=== PATIENT | female | born 1930 | race Hispanic/Latino ===

== ENCOUNTER 2016-08-10 15:21 | Inpatient (IN) | payer MEDICARE ==
[2016-08-10 16:30] LABS: Basophils % (Auto) 1.1 % (0.0-1.8); Eosinophils % (Auto) 0.4 % (0.0-4.3); Hematocrit 33.2 % (30.3-42.9); Hemoglobin 10.3 gm/dl (10.1-14.3); Mean Corpuscular HGB Conc 31 % (30-34); Mean Corpuscular Hemoglobin 28 pg (28-32); Mean Corpuscular Volume 91 fl (79-97); Platelet Count 182 K/mm3 (140-440); Red Blood Count 3.66 M/mm3 (3.65-5.03); Red Cell Distribution Width 18.8 % (13.2-15.2); White Blood Count 6.3 K/mm3 (4.5-11.0)
[2016-08-10] MEDS ORDERED: LOPRESSOR IV ONE (16:33)
[2016-08-10] MEDS ORDERED: ASPIRIN PO ONE (16:33)
--- NOTE | 2016-08-10 16:36 | Emergency Department Report ---
ED Palpitations HPI - General Chief Complaint: Chest Pain Stated Complaint: CHEST PAIN Time Seen by Provider: 08/10/16 16:27 Source: patient, family Mode of arrival: Stretcher Limitations: No Limitations - History of Present Illness MD Complaint: rapid heart beat, "heart racing", "skipped beats", palpitations, irregular heart beat, atrial fibrillation -: Sudden Context: occured during rest, change in medication Arrythmia History: atrial fibrillation Associated Symptoms: chest pain, shortness of breath, near-syncope. denies: nausea/vomiting, diaphoresis, cough, parasthesias, feeling of impending doom, muscle cramps - Related Data Home Medications Medication Instructions Recorded Confirmed Last Taken Digoxin [Lanoxin] 0.125 mg PO DAILY 11/03/13 08/10/16 11/03/13 Warfarin Sodium [Coumadin] 3 mg PO QDAY 04/11/16 08/10/16 Unknown Carvedilol [Coreg] 3.125 mg PO DAILY 08/10/16 08/10/16 Unknown Allergies Allergy/AdvReac Type Severity Reaction Status Date / Time No Known Allergies Allergy Verified 08/10/16 16:04 ED Review of Systems ROS: Stated complaint: CHEST PAIN Other details as noted in HPI Comment: Unobtainable due to pts medical conditions Constitutional: denies: chills, fever Eyes: denies: eye pain, eye discharge, vision change ENT: denies: ear pain, throat pain Respiratory: denies: cough, shortness of breath, wheezing Cardiovascular: denies: chest pain, palpitations Endocrine: no symptoms reported Gastrointestinal: denies: abdominal pain, nausea, diarrhea Genitourinary: denies: urgency, dysuria, discharge Musculoskeletal: denies: back pain, joint swelling, arthralgia Skin: denies: rash, lesions Neurological: denies: headache, weakness, paresthesias Psychiatric: denies: anxiety, depression Hematological/Lymphatic: denies: easy bleeding, easy bruising ED Past Medical Hx - Past Medical History Previous Medical History?: Yes Hx Hypertension: Yes Hx CVA: Yes Hx Congestive Heart Failure: Yes Hx Diabetes: No Hx GERD: Yes Hx Arthritis: Yes Hx Asthma: No Hx COPD: No Hx HIV: No Additional medical history: Atrial fibrillation. States previous rotator cuff injury with left arm weakness. 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 - Surgical History Past Surgical History?: Yes Additional Surgical History: left hip surgery - Social History Smoking Status: Never Smoker Substance Use Type: None - Medications Home Medications: Home Medications Medication Instructions Recorded Confirmed Last Taken Type Digoxin [Lanoxin] 0.125 mg PO DAILY 11/03/13 08/10/16 11/03/13 History Warfarin Sodium [Coumadin] 3 mg PO QDAY 04/11/16 08/10/16 Unknown History Carvedilol [Coreg] 3.125 mg PO DAILY 08/10/16 08/10/16 Unknown History ED Physical Exam - General Limitations: No Limitations General appearance: alert, in no apparent distress - Head Head exam: Present: atraumatic, normocephalic - Eye Eye exam: Present: normal appearance - ENT ENT exam: Present: mucous membranes moist - Neck Neck exam: Present: normal inspection - Respiratory Respiratory exam: Present: normal lung sounds bilaterally, rales (mild lower bases). Absent: respiratory distress, wheezes, chest wall tenderness, accessory muscle use - Cardiovascular Cardiovascular Exam: Present: regular rate, normal rhythm. Absent: systolic murmur, diastolic murmur, rubs, gallop - GI/Abdominal GI/Abdominal exam: Present: soft, normal bowel sounds - Extremities Exam Extremities exam: Present: normal inspection - Back Exam Back exam: Present: normal inspection - Neurological Exam Neurological exam: Present: alert, oriented X3 - Psychiatric Psychiatric exam: Present: normal affect, normal mood - Skin Skin exam: Present: warm, dry, intact, normal color. Absent: rash ED Course Vital Signs 08/10/16 08/10/16 08/10/16 15:57 16:07 17:21 Temperature 98.2 F 98.2 F Pulse Rate 101 H 113 H 101 H Respiratory 16 16 Rate Blood Pressure 121/83 Blood Pressure 117/18 [Right] O2 Sat by Pulse 100 100 Oximetry ED Medical Decision Making - Lab Data Result diagrams: 08/10/16 16:10 08/10/16 16:10 - EKG Data Rate: tachycardia - EKG Data Interpretation: subendocardial ischemia, other (afib) - Radiology Data Radiology results: image reviewed - Medical Decision Making Will admit for chf and afib , metoprolol given here, labs and cxr consistent with mild pulm edema, she has been out of her dig for 3 weeks, She is speaking full sentence and eating in the ER, Spoke to cardiology and agree with plan for admission Critical care attestation.: If time is entered above; I have spent that time in minutes in the direct care of this critically ill patient, excluding procedure time. ED Disposition Clinical Impression: Atrial fibrillation, Pulmonary edema Disposition: OP ADMITTED IP TO THIS HOSP Is pt being admited?: Yes Does the pt Need Aspirin: No Condition: Good Instructions: Pulmonary Edema (ED) Referrals: PRIMARY CARE, [Primary Care Provider] - 3-5 Days Time of Disposition: 17:47
[2016-08-10 16:42] LABS: INR 1.78 (0.87-1.13); Partial Thromboplastin Time 35.2 Sec. (24.2-36.6)
[2016-08-10 16:53] LABS: Anion Gap 18 mmol/L; BUN/Creatinine Ratio 17.14; Blood Urea Nitrogen 12 mg/dL (7-17); Carbon Dioxide 22 mmol/L (22-30); Chloride 106.1 mmol/L (98-107); Glucose 109 mg/dL (65-100); Potassium 4.2 mmol/L (3.6-5.0); Sodium 142 mmol/L (137-145)
--- NOTE | 2016-08-10 18:04 | Admit Criteria Form ---
Admission Criteria Documentation: ATRIAL FIBRILLATION Clinical Indications for Admission to Inpatient Care (Place 'X' for any and all applicable criteria): Admission indicated for ANY ONE of the following(1)(2)(3)(4)(5) : [ ]I. Myocardial ischemia [X ]II. Dyspnea or hypoxemia [ ]III. Hemodynamic instability [ ]IV. Heart failure (e.g., pulmonary edema) (7) [ ]V. New-onset (less than 48 hours) atrial fibrillation with high risk for causing complications secondary to comorbidities (eg, symptomatic heart failure ) [ ]. Altered mental status [ ]VII. Syncope [ ]VIII. Patient has implantable cardioverter defibrillator that has fired more than once within past 24hr or needs immediate adjustment of settings that cannot be done other than in inpatient setting. (8) [ ]IX. Suspected accessory pathway (e.g., Ymcpo-[id number]-Htdco syndrome) on ECG [ ]X. Recent systemic thromboembolism (eg, stroke) [ ]XI. Medication toxicity (e.g., digitalis) causing arrhythmia(9) [ ]XII. Underlying medical condition that necessitates inpatient care (e.g., thyrotoxicosis, pneumonia) (10) [ ]XIII. Continuous ECG monitoring is required for condition causing arrhythmia (e.g., severe hyperkalemia, hypokalemia, acid-base disturbance).(11)(12)(13) [ ]XIV. Initiation of antiarrhythmic drug therapy is needed in patient at high risk of adverse effects as indicated by ANY ONE of the following: [ ]a) Significant structural heart disease (e.g., reduced ejection fraction, congenital heart disease, valvular heart disease) [ ]b) Prolonged QT interval [ ]c) Underlying sinus node or atrioventricular conduction disturbances [ ]d) Need for treatment with antiarrhythmic drugs that have significant proarrhythmic potential (e.g., dofetilide, sotalol, procainamide) [ ]e) Patient whose sinus rhythm has never been observed on ECG [ ]XV. Intolerable symptoms despite optimal outpatient treatment [ ]XVI. Elective or urgent cardioversion that cannot be performed on outpatient basis or during observation care. [A] (Use also Atrial Fibrillation: Observation Care ) as appropriate.(14) [ ]XVII.Contraindications and/or Inappropriate clinical situations for Observational Care in patients with Atrial Fibrillation, when ANY ONE of the following is required: [ ]a) Patient with High risk of cardiac embolism (e.g, patients with previous cardiac embolism, LVEF < 40%, age >75 and patients with prosthetic valve) 18 [ ]b) Patient with Moderate risk including DM patient, CAD and patient aged 65-75 18 [ ]c) Patient with any change in cardiac biomarker especially troponin should be managed as high risk in an inpatient setting 19 [ ]d) Physician judgement irrespective of ECG and other diagnostic findings 20 [X ]XVIII.General contraindications and/or Inappropriate clinical situations for Observational Care in patients with Atrial Fibrillation, when ANY ONE of the following is required: [ X]a) Prediction of prolongation of LOS based on ANY ONE of the following may be considered as a contraindication for observational care 2, 3, 4, 5, 6, 7, 8, 9, 10, 11 [X ]i) Age > 65 yrs. [ ]ii) Patient arriving by ambulance [ ]iii) Patient with high acuity [ ]iv) Patient requiring vital sign monitoring [ ]v) Patient on IV medication [ ]b) Systolic blood pressures 180mmHg 3,12 [ ]c) Patient with altered mental status including delirium and other alteration of consciousness3 [ ]d) Patient whose discharge disposition will be to a prison home or rehabilitation home should not be managed in Emergency Department Observation Unit. CMS rule requires 3 days hospital stay before such placement.3,13 [ ]e) Patient with failure to thrive due to broad array of etiologies 3,16,17 [ ]f) Inability to ambulate 3,14 Extended stay beyond goal length of stay may be needed for (1)(25)(26): [ ]a) Unstable comorbidities [ ]b) Persistently uncontrolled atrial fibrillation or other arrhythmias [ ]c) Acute thromboembolic event (e.g., stroke, limb ischemia) [ ]d) Need for inpatient attainment of full anticoagulation The original [employer] content created by [employer] has been revised. The portions of the content which have been revised are identified through the use of italic text or in bold, and [employer] [facility] [facility] has neither reviewed nor approved the modified material. All other unmodified content is copyright [employer]. Please see references footnoted in the original [employer] edition 2016 Admission Criteria Met: Yes
--- NOTE | 2016-08-10 18:59 | History and Physical Report ---
History of Present Illness Chief complaint: My heart is beating real fast History of present illness: 86 YO Female with HTN, CVA, CHF, GERD, OA, Atrial Fib with RVR presents to ED for evaluation. Pt states that she experienced and acute onset "heart racing" , "skipped beats". Pt states that symptoms began while she was resting. Pt denies fever, chills, CP, NVD, shortness of breath, syncope, leg swelling, calf pain, prolonged immobility/travel, individual/family history of DVT/PE, productive cough, or recent ill contacts. Pt had recent change in her cardiac medication. Past History Past Medical History: atrial fib, GERD, heart failure, hypertension, stroke Past Surgical History: total hip replacement Social history: . denies: smoking, alcohol abuse, prescription drug abuse Family history: hypertension Medications and Allergies Allergies Allergy/AdvReac Type Severity Reaction Status Date / Time No Known Allergies Allergy Verified 08/10/16 16:04 Home Medications Medication Instructions Recorded Confirmed Last Taken Type Digoxin [Lanoxin] 0.125 mg PO DAILY 11/03/13 08/10/16 11/03/13 History Warfarin Sodium [Coumadin] 3 mg PO QDAY 04/11/16 08/10/16 Unknown History Carvedilol [Coreg] 3.125 mg PO DAILY 08/10/16 08/10/16 Unknown History Review of Systems All systems: negative Cardiovascular: palpitations, rapid/irregular heart beat Exam - Constitutional Vitals: Temp Pulse Resp BP Pulse Ox 98.2 F 98 H 16 134/83 97 08/10/16 16:07 08/10/16 18:00 08/10/16 18:00 08/10/16 18:00 08/10/16 18:00 General appearance: Present: mild distress - EENT Eyes: Present: PERRL ENT: hearing intact, clear oral mucosa - Neck Neck: Present: supple, normal ROM - Respiratory Respiratory effort: normal Respiratory: bilateral: CTA - Cardiovascular Rhythm: irregularly irregular Heart Sounds: Present: S1 & S2. Absent: rub, click - Extremities Extremities: pulses symmetrical, No edema Peripheral Pulses: within normal limits - Abdominal General gastrointestinal: Present: soft, non-tender, non-distended, normal bowel sounds Female genitourinary: Present: normal - Integumentary Integumentary: Present: clear, warm, dry - Musculoskeletal Musculoskeletal: gait normal, strength equal bilaterally - Psychiatric Psychiatric: appropriate mood/affect, intact judgment & insight - Neurologic Neurologic: CNII-XII intact, moves all extremities Results - Labs CBC & Chem 7: 08/10/16 16:10 08/10/16 16:10 Labs: Abnormal lab results 08/10/16 08/10/16 08/10/16 Range/Units 16:10 16:10 16:10 RDW 18.8 H (13.2-15.2) % Lymph % (Auto) 11.8 L (13.4-35.0) % [place] % (Auto) 8.1 H (0.0-7.3) % Lymph # 0.7 L (1.2-5.4) K/mm3 Seg Neutrophils % 78.6 H (40.0-70.0) % PT 20.7 H (12.2-14.9) Sec. INR 1.78 H (0.87-1.13) Glucose 109 H (65-100) mg/dL Calcium 8.0 L (8.4-10.2) mg/dL NT-Pro-B Natriuret Pep (0-900) pg/mL 08/10/16 Range/Units 16:10 RDW (13.2-15.2) % Lymph % (Auto) (13.4-35.0) % Mower % (Auto) (0.0-7.3) % Lymph # (1.2-5.4) K/mm3 Seg Neutrophils % (40.0-70.0) % PT (12.2-14.9) Sec. INR (0.87-1.13) Glucose (65-100) mg/dL Calcium (8.4-10.2) mg/dL NT-Pro-B Natriuret Pep 5697 H (0-900) pg/mL Assessment and Plan - Patient Problems (1) Atrial fibrillation Current Visit: Yes Status: Acute Qualifiers: Atrial fibrillation type: A Plan to address problem: Cardiology team consulted, continue digoxin, Digoxin level, telemetry monitoring , resume anticoagulation, discuss risks and benefits of anticoagulation. (2) Accelerated hypertension Current Visit: Yes Status: Acute Plan to address problem: Monitor bp q shift, continue current therapy, (3) CHF (congestive heart failure) Current Visit: Yes Status: Chronic Qualifiers: Congestive heart failure type: systolic Congestive heart failure chronicity : C Plan to address problem: CHF protocol: fluid restriction, strict i/o, daily weight, resume home medication, supportive care. cardiology team consulted (4) Pulmonary edema Current Visit: Yes Status: Acute Qualifiers: Chronicity: C Plan to address problem: Fluid restriction, diuresis, treat chf, (5) DVT prophylaxis Current Visit: Yes Status: Acute
[2016-08-10] MEDS ORDERED: DULCOLAX PR PRN (19:33)
[2016-08-10] MEDS ORDERED: MILK OF MAGNESIA PO PRN (19:33)
[2016-08-10] MEDS ORDERED: TYLENOL PO PRN (19:33)
[2016-08-10] MEDS ORDERED: ZOFRAN IV PRN (19:33)
[2016-08-10] MEDS ORDERED: SODIUM CHLORIDE FLUSH SYRINGE 10 ML IV PRN (19:35)
[2016-08-10 21:19] LABS: Creatine Kinase 19 units/L (30-135); Creatine Kinase MB < 1.0 ng/mL (0.0-4.0)
--- NOTE | 2016-08-11 09:59 | XRay Report ---
AP CHEST : 08/10/16 15:21:00 CLINICAL: Chest pain. COMPARISON:04/11/16 FINDINGS: The heart is large. Central vascular congestion and bibasal lung opacities, greater on the right than the left. The pulmonary vessels are indistinct on the right side and there is more diffuse opacification of the right hemithorax and blunting of right costophrenic angle.The heart is large. The left upper lobe is clear. The bones and soft tissues are unremarkable. IMPRESSION: Suspect right pneumonia with pleural effusion.
[2016-08-11] MEDS ORDERED: COREG PO SCH (10:00)
[2016-08-11] MEDS ORDERED: NON-FORMULARY (Warfarin Sodium [Coumadin] 3 MG) PO SCH (10:00)
--- NOTE | 2016-08-11 13:14 | Progress Note ---
Assessment and Plan Assessment and plan: 86 YO Female with HTN, CVA, CHF, GERD, OA, Atrial Fib with RVR presents to ED for evaluation. Pt states that she experienced and acute onset "heart racing" , "skipped beats". Her daughter states that she was out of digoxin for about 2 weeks, as there was a problem with the MAIL order prescriptions. 1. Atrial fibrillation with RVR Has been restarted on her home medications which include digoxin and beta yousuf, on anticoagulation, INR subtherapeutic she has been started on Coumadin and pharmacy consult for Coumadin management 2. Accelerated hypertension Resume home meds, optimize medications 3. CHF Patient is currently euvolemic and asymptomatic, continue home medications low- sodium diet 4. Dementia Supportive care History Interval history: Palpitations are improved, denies chest pain, denies shortness of breath Hospitalist Physical - Physical exam Narrative exam: General: Patient appears well in no distress HEENT: MMM, EOMI cardiac: S1-S2 heard lungs: clear to auscultation, abdomen: soft, nontender, nondistended bowel sounds positive extremities: no edema clubbing or cyanosis Skin: no rash or lesion Neuro: no focal deficit Psych: Pleasantly demented, oriented to person only - Constitutional Vitals: Temp Pulse Resp BP Pulse Ox 98.3 F 111 H 16 166/97 99 08/11/16 09:45 08/11/16 10:00 08/11/16 09:45 08/11/16 09:45 08/11/16 09:45 General appearance: Present: mild distress Results - Labs CBC & Chem 7: 08/10/16 16:10 08/10/16 16:10 Labs: Laboratory Last Values WBC 6.3 K/mm3 (4.5-11.0) 08/10/16 16:10 RBC 3.66 M/mm3 (3.65-5.03) 08/10/16 16:10 Hgb 10.3 gm/dl (10.1-14.3) 08/10/16 16:10 Hct 33.2 % (30.3-42.9) 08/10/16 16:10 MCV 91 fl (79-97) 08/10/16 16:10 MCH 28 pg (28-32) 08/10/16 16:10 MCHC 31 % (30-34) 08/10/16 16:10 RDW 18.8 % (13.2-15.2) H 08/10/16 16:10 Plt Count 182 K/mm3 (140-440) 08/10/16 16:10 Lymph % (Auto) 11.8 % (13.4-35.0) L 08/10/16 16:10 [place] % (Auto) 8.1 % (0.0-7.3) H 08/10/16 16:10 Eos % (Auto) 0.4 % (0.0-4.3) 08/10/16 16:10 Baso % (Auto) 1.1 % (0.0-1.8) 08/10/16 16:10 Lymph # 0.7 K/mm3 (1.2-5.4) L 08/10/16 16:10 [place] # 0.5 K/mm3 (0.0-0.8) 08/10/16 16:10 Eos # 0.0 K/mm3 (0.0-0.4) 08/10/16 16:10 Baso # 0.1 K/mm3 (0.0-0.1) 08/10/16 16:10 Seg Neutrophils % 78.6 % (40.0-70.0) H 08/10/16 16:10 Seg Neutrophils # 4.9 K/mm3 (1.8-7.7) 08/10/16 16:10 PT 20.7 Sec. (12.2-14.9) H 08/10/16 16:10 INR 1.78 (0.87-1.13) H 08/10/16 16:10 APTT 35.2 Sec. (24.2-36.6) 08/10/16 16:10 Sodium 142 mmol/L (137-145) 08/10/16 16:10 Potassium 4.2 mmol/L (3.6-5.0) 08/10/16 16:10 Chloride 106.1 mmol/L (98-107) 08/10/16 16:10 Carbon Dioxide 22 mmol/L (22-30) 08/10/16 16:10 Anion Gap 18 mmol/L 08/10/16 16:10 BUN 12 mg/dL (7-17) 08/10/16 16:10 Creatinine 0.7 mg/dL (0.7-1.2) 08/10/16 16:10 Estimated GFR > 60 ml/min 08/10/16 16:10 BUN/Creatinine Ratio 17.14 % 08/10/16 16:10 Glucose 109 mg/dL (65-100) H 08/10/16 16:10 Calcium 8.0 mg/dL (8.4-10.2) L 08/10/16 16:10 Total Creatine Kinase 19 units/L (30-135) L 08/10/16 20:44 CK-MB (CK-2) < 1.0 ng/mL (0.0-4.0) 08/10/16 20:44 CK-MB (CK-2) Rel Index 5.2 (0-4) H 08/10/16 20:44 Troponin T < 0.010 ng/mL (0.00-0.029) 08/10/16 20:44 NT-Pro-B Natriuret Pep 5697 pg/mL (0-900) H 08/10/16 16:10 Digoxin 0.2 ng/mL (0.9-2.0) L 08/10/16 16:10
[2016-08-11] MEDS: LANOXIN PO SCH (16:33)
[2016-08-11] MEDS: COUMADIN PO SCH (16:33)
--- NOTE | 2016-08-11 18:42 | Consultation ---
History of Present Illness Consult date: 08/11/16 Consult reason: atrial fibrillation History of present illness: Patient all of sudden felt her heart was racing,no associated chest pain or SOB. Past History Past Medical History: atrial fib, GERD, heart failure, hypertension, stroke Past Surgical History: total hip replacement Social history: . denies: smoking, alcohol abuse, prescription drug abuse Family history: hypertension Medications and Allergies Allergies Allergy/AdvReac Type Severity Reaction Status Date / Time No Known Allergies Allergy Verified 08/10/16 16:04 Home Medications Medication Instructions Recorded Confirmed Last Taken Type Digoxin [Lanoxin] 0.125 mg PO DAILY 11/03/13 08/10/16 11/03/13 History Warfarin Sodium [Coumadin] 3 mg PO QDAY 04/11/16 08/10/16 Unknown History Carvedilol [Coreg] 3.125 mg PO DAILY 08/10/16 08/10/16 Unknown History Active Meds: Active Medications Acetaminophen (Tylenol) 650 mg PO Q4H PRN PRN Reason: Pain MILD(1-3)/Fever >100.5/GERMAIN Bisacodyl (Dulcolax) 10 mg NE QDAY PRN PRN Reason: Constipation unrelieved by MOM Digoxin (Lanoxin) 0.125 mg PO DAILY@1700 [facility] Last Admin: 08/11/16 16:33 Dose: 0.125 mg Magnesium Hydroxide (Milk Of Magnesia) 30 ml PO Q4H PRN PRN Reason: Constipation Metoprolol Tartrate (Lopressor) 25 mg PO BID [facility] Stop: 08/21/16 21:59 Ondansetron HCl (Zofran) 4 mg IV Q8H PRN PRN Reason: N/V unrelieved by Reglan Sodium Chloride (Sodium Chloride Flush Syringe 10 Ml) 10 ml IV PRN PRN PRN Reason: LINE FLUSH Warfarin Sodium (Coumadin) 3 mg PO DAILY@1700 [facility] Last Admin: 08/11/16 16:33 Dose: 3 mg Review of Systems Constitutional: no weight loss Ears, nose, mouth and throat: no nasal discharge Breasts: deferred Cardiovascular: palpitations, no chest pain, no syncope Respiratory: no cough Genitourinary Female: no dysuria Rectal: no bleeding Musculoskeletal: no neck pain Neurological: no head injury Psychiatric: no memory loss Hematologic/Lymphatic: no easy bleeding Allergic/Immunologic: no urticaria Physical Examination Vital Signs Temp Pulse Resp BP Pulse Ox 98.2 F 101 H 16 121/83 100 08/10/16 15:57 08/10/16 15:57 08/10/16 15:57 08/10/16 15:57 08/10/16 15:57 HEENT: Positive: PERRL Neck: Positive: neck supple, trachea midline Cardiac: Positive: irregularly irregular Lungs: Positive: Decreased Breath Sounds Abdomen: Positive: Unremarkable Female genitourinary: deferred Extremities: Absent: edema Results 08/10/16 16:10 08/10/16 16:10 Cardiac Enzymes 08/10/16 Range/Units 20:44 CK-MB (CK-2) < 1.0 (0.0-4.0) ng/mL EKG interpretations - Telemetry EKG Rhythm: Atrial Fibrillation Assessment and Plan - Patient Problems (1) Atrial fibrillation Current Visit: Yes Status: Acute Qualifiers: Atrial fibrillation type: A Plan to address problem: Patient known to me for long time,with atrial fibrillation,on dogoxin,carvedolo and Warfarin,did not take her digoxin for few weeks(mail order did not come), also takes Carvedilol only once a day.usually her B.P on low sode and could not give higher doses of B bloker.presently stable,changed Carvedilol to Metoprolol and see how leisa does. (2) Accelerated hypertension Current Visit: Yes Status: Acute (3) Anemia Onset Date: 01/21/13 Current Visit: No Status: Chronic Qualifiers: Anemia type: A Iron deficiency anemia type: I Vitamin B12 deficiency anemia type: V Folate deficiency anemia type: F Bone marrow failure anemia type: B Hemolytic anemia type: H Other causes of anemia: O
[2016-08-11] MEDS ORDERED: LASIX IV ONE (19:18)
[2016-08-11] MEDS: LOPRESSOR PO SCH (21:10)
[2016-08-11 23:50] LABS: Creatine Kinase MB 1.1 ng/mL (0.0-4.0)
[2016-08-11 23:52] LABS: Creatine Kinase 20 units/L (30-135)
[2016-08-12 07:53] LABS: INR 1.47 (0.87-1.13)
[2016-08-12] MEDS: LOPRESSOR PO SCH ×2 (08:59→22:00)
[2016-08-12] MEDS ORDERED: LASIX IV ONE (15:43)
--- NOTE | 2016-08-12 15:47 | Progress Note ---
Assessment and Plan - Patient Problems (1) Atrial fibrillation Current Visit: Yes Status: Acute Qualifiers: Atrial fibrillation type: A Plan to address problem: Patient known to me for long time,with atrial fibrillation,on dogoxin,carvedolo and Warfarin,did not take her digoxin for few weeks(mail order did not come), also takes Carvedilol only once a day.usually her B.P on low sode and could not give higher doses of B bloker.presently stable,changed Carvedilol to Metoprolol and see how leisa does. 08/12/2016>Atrial fib rate is well controlled.Continue present rx. (2) Accelerated hypertension Current Visit: Yes Status: Acute (3) Anemia Onset Date: 01/21/13 Current Visit: No Status: Chronic Qualifiers: Anemia type: A Iron deficiency anemia type: I Vitamin B12 deficiency anemia type: V Folate deficiency anemia type: F Bone marrow failure anemia type: B Hemolytic anemia type: H Other causes of anemia: O (4) CHF (congestive heart failure) Current Visit: Yes Status: Acute Qualifiers: Congestive heart failure type: systolic Congestive heart failure chronicity : C Plan to address problem: responding well to diuretics,will check echo. Subjective Date of service: 08/12/16 Interval history: Patient diuresed well with iv Lasix,feels better. Objective Vital Signs Temp Pulse Pulse Pulse Pulse Resp BP 08/12/16 13:32 75 08/12/16 08:59 71 161/82 08/12/16 08:00 97.6 F 71 08/12/16 06:00 97.9 F 69 20 08/12/16 01:27 98.7 F 85 20 08/11/16 21:10 99 H 148/86 08/11/16 20:16 97.6 F 78 19 08/11/16 17:35 97.2 F L 112 H 16 BP Pulse Ox 08/12/16 13:32 156/61 08/12/16 08:59 08/12/16 08:00 161/82 08/12/16 06:00 144/92 98 08/12/16 01:27 179/85 100 08/11/16 21:10 08/11/16 20:16 148/86 96 08/11/16 17:35 136/78 97 - Physical Examination HEENT: Positive: PERRL Neck: Positive: neck supple, trachea midline Cardiac: Positive: irregularly irregular Lungs: Positive: Normal Breath Sounds, Decreased Breath Sounds Abdomen: Positive: Unremarkable Extremities: Present: edema, +1 Edema - Labs and Meds Cardiac Enzymes 08/11/16 Range/Units 23:09 CK-MB (CK-2) 1.1 (0.0-4.0) ng/mL Coagulation 08/12/16 Range/Units 07:02 PT 17.8 H (12.2-14.9) Sec. INR 1.47 H (0.87-1.13)
[2016-08-12] MEDS: LANOXIN PO SCH (18:45)
[2016-08-12] MEDS: ZESTRIL PO SCH (18:46)
[2016-08-12] MEDS: COUMADIN PO SCH (18:46)
[2016-08-12] MEDS: LASIX IV ONE ×2 (19:00→20:36)
[2016-08-13 06:04] LABS: INR 1.48 (0.87-1.13)
[2016-08-13] MEDS: ZESTRIL PO SCH (11:14)
[2016-08-13] MEDS: LOPRESSOR PO SCH (11:16)
--- NOTE | 2016-08-13 11:34 | Progress Note ---
Assessment and Plan - Patient Problems (1) Atrial fibrillation Current Visit: Yes Status: Acute Qualifiers: Atrial fibrillation type: A Plan to address problem: Atrial fib rate is well controlled.Continue present rx. (2) Accelerated hypertension Current Visit: Yes Status: Acute (3) Anemia Onset Date: 01/21/13 Current Visit: No Status: Chronic Qualifiers: Anemia type: A Iron deficiency anemia type: I Vitamin B12 deficiency anemia type: V Folate deficiency anemia type: F Bone marrow failure anemia type: B Hemolytic anemia type: H Other causes of anemia: O (4) CHF (congestive heart failure) Current Visit: Yes Status: Acute Qualifiers: Congestive heart failure type: systolic Congestive heart failure chronicity : C Plan to address problem: responding well to diuretics,will check echo. Currently stable cardiac status. Await echo. Pending echo reveals NAF, pt may discharge home from cardiology standpoint. Recommend follow up in our office with Dr. Kemp within 1-2 weeks of hospital discharge. Pt to start having INR checks at home per home health to encourage compliance. The patient has been seen in conjunction with Dr. Nogueira who agrees with the assessment and plan of care. Subjective Date of service: 08/13/16 Principal diagnosis: AFib with RVR Interval history: Pt resting comfortably in bed, no complaints. In AFib with CVR on tele. Daughter at bedside states that pt is becoming increasingly confused as this hospitalization continues and is requesting that pt be discharged home JUANY. Objective Last Vital Signs Temp 97.9 F 08/13/16 07:09 Pulse 72 08/13/16 11:16 Resp 20 08/13/16 07:09 BP 124/61 08/13/16 07:09 Pulse Ox 97 08/13/16 07:09 - Physical Examination HEENT: Positive: PERRL Neck: Positive: neck supple, trachea midline Cardiac: Positive: irregularly irregular, S1/S2 Lungs: Positive: Normal Exam, clear to auscultation, Normal Breath Sounds Neuro: Positive: Grossly Intact, Cranial Nerve 2-12 Intact, Other (confused ) Abdomen: Positive: Unremarkable, Soft, Active Bowel Sounds. Negative: Tender Skin: Positive: Clear. Negative: Rash, Wound Musculoskeletal: No Fluid Collection, No Pain, Normal Range of Motion Extremities: Present: upper extr. pulses, lower extr. pulses. Absent: edema - Labs and Meds Coagulation 08/13/16 Range/Units 04:51 PT 17.9 H (12.2-14.9) Sec. INR 1.48 H (0.87-1.13) - Imaging and Cardiology EKG: report reviewed, image reviewed Echo: pending - Telemetry EKG Rhythm: Atrial Fibrillation
[2016-08-13 13:08] VITALS: BP 128/68
--- NOTE | 2016-08-13 14:00 | Progress Note ---
Assessment and Plan Assessment and plan: 86 YO Female with HTN, CVA, CHF, GERD, OA, Atrial Fib with RVR presents to ED for evaluation. Pt states that she experienced and acute onset "heart racing" , "skipped beats". Her daughter states that she was out of digoxin for about 2 weeks, as there was a problem with the MAIL order prescriptions. 1. Atrial fibrillation with RVR Has been restarted on her home medications which include digoxin and beta yousuf, on anticoagulation, INR subtherapeutic she has been started on Coumadin and pharmacy consult for Coumadin management 2. Accelerated hypertension Resume home meds, optimize medications 3. CHF Patient is currently euvolemic and asymptomatic, continue home medications low- sodium diet 4. Dementia Supportive care History Interval history: Palpitations are improved, denies chest pain, denies shortness of breath Hospitalist Physical - Physical exam Narrative exam: General: Patient appears well in no distress HEENT: MMM, EOMI cardiac: S1-S2 heard lungs: clear to auscultation, abdomen: soft, nontender, nondistended bowel sounds positive extremities: no edema clubbing or cyanosis Skin: no rash or lesion Neuro: no focal deficit Psych: Pleasantly demented, oriented to person only - Constitutional Vitals: Temp Pulse Resp BP Pulse Ox 98.8 F 75 18 128/68 99 08/13/16 13:07 08/13/16 13:07 08/13/16 13:07 08/13/16 13:07 08/13/16 13:07 General appearance: Present: mild distress Results - Labs CBC & Chem 7: 08/10/16 16:10 08/10/16 16:10 Labs: Laboratory Last Values WBC 6.3 K/mm3 (4.5-11.0) 08/10/16 16:10 RBC 3.66 M/mm3 (3.65-5.03) 08/10/16 16:10 Hgb 10.3 gm/dl (10.1-14.3) 08/10/16 16:10 Hct 33.2 % (30.3-42.9) 08/10/16 16:10 MCV 91 fl (79-97) 08/10/16 16:10 MCH 28 pg (28-32) 08/10/16 16:10 MCHC 31 % (30-34) 08/10/16 16:10 RDW 18.8 % (13.2-15.2) H 08/10/16 16:10 Plt Count 182 K/mm3 (140-440) 08/10/16 16:10 Lymph % (Auto) 11.8 % (13.4-35.0) L 08/10/16 16:10 Barron % (Auto) 8.1 % (0.0-7.3) H 08/10/16 16:10 Eos % (Auto) 0.4 % (0.0-4.3) 08/10/16 16:10 Baso % (Auto) 1.1 % (0.0-1.8) 08/10/16 16:10 Lymph # 0.7 K/mm3 (1.2-5.4) L 08/10/16 16:10 [place] # 0.5 K/mm3 (0.0-0.8) 08/10/16 16:10 Eos # 0.0 K/mm3 (0.0-0.4) 08/10/16 16:10 Baso # 0.1 K/mm3 (0.0-0.1) 08/10/16 16:10 Seg Neutrophils % 78.6 % (40.0-70.0) H 08/10/16 16:10 Seg Neutrophils # 4.9 K/mm3 (1.8-7.7) 08/10/16 16:10 PT 17.9 Sec. (12.2-14.9) H 08/13/16 04:51 INR 1.48 (0.87-1.13) H 08/13/16 04:51 APTT 35.2 Sec. (24.2-36.6) 08/10/16 16:10 Sodium 142 mmol/L (137-145) 08/10/16 16:10 Potassium 4.2 mmol/L (3.6-5.0) 08/10/16 16:10 Chloride 106.1 mmol/L (98-107) 08/10/16 16:10 Carbon Dioxide 22 mmol/L (22-30) 08/10/16 16:10 Anion Gap 18 mmol/L 08/10/16 16:10 BUN 12 mg/dL (7-17) 08/10/16 16:10 Creatinine 0.7 mg/dL (0.7-1.2) 08/10/16 16:10 Estimated GFR > 60 ml/min 08/10/16 16:10 BUN/Creatinine Ratio 17.14 % 08/10/16 16:10 Glucose 109 mg/dL (65-100) H 08/10/16 16:10 Calcium 8.0 mg/dL (8.4-10.2) L 08/10/16 16:10 Total Creatine Kinase 20 units/L (30-135) L 08/11/16 23:09 CK-MB (CK-2) 1.1 ng/mL (0.0-4.0) 08/11/16 23:09 CK-MB (CK-2) Rel Index 5.5 (0-4) H 08/11/16 23:09 Troponin T < 0.010 ng/mL (0.00-0.029) 08/11/16 23:09 NT-Pro-B Natriuret Pep 5697 pg/mL (0-900) H 08/10/16 16:10 Digoxin 0.2 ng/mL (0.9-2.0) L 08/10/16 16:10
--- NOTE | 2016-08-13 14:01 | Discharge Summary ---
Providers - Providers Date of Admission: 08/10/16 19:33 Attending physician: MARGY ACE MD 08/10/16 Consult to Cardiac Rehabilitation [CONS] Routine Reason For Exam: Phase I 08/10/16 19:37 Consult to Physician [CONS] Routine Consulting Provider: [place] ANDREW Reason For Exam: CHF, a fib Place consult to:: cardiology Notified:: NIELS AT [facility] Phone number called:: [phone] Was contact made?: Yes If yes, spoke with:: NIELS AT [facility] Time called:: 22:30 08/11/16 15:37 Physical Therapy Evaluation and Treat [CONS] Routine Comment: Reason For Exam: debility Primary care physician: [employer]PAK DRIVER Hospitalization Condition: Good Hospital course: 86 YO Female with HTN, CVA, CHF, GERD, OA, Atrial Fib with RVR presents to ED for evaluation. Pt states that she experienced and acute onset "heart racing" , "skipped beats". Her daughter states that she was out of digoxin for about 2 weeks, as there was a problem with the MAIL order prescriptions. 1. Atrial fibrillation with RVR Has been restarted on her home medications which include digoxin and beta yousuf, after which her heart rate became better controlled, she was put back on Coumadin, INR is well followed. Patient is to follow with her Coumadin clinic within 48 hours of discharge. 2. Accelerated hypertension Resumed home meds, after which her blood pressure is under better control 3. CHF currently euvolemic and asymptomatic, continue home medications low-sodium diet 4. Dementia Supportive care Disposition: DC/TX HOME UNDER HOME HEALTH Time spent for discharge: 35 minutes Core Measure Documentation - Palliative Care Palliative Care/ Comfort Measures: Not Applicable - Core Measures Any of the following diagnoses?: heart failure Exam - Physical Exam Narrative exam: General: Patient appears well in no distress HEENT: MMM, EOMI cardiac: S1-S2 heard lungs: clear to auscultation, abdomen: soft, nontender, nondistended bowel sounds positive extremities: no edema clubbing or cyanosis Skin: no rash or lesion Neuro: no focal deficit Psych: Pleasantly demented, oriented to person only - Constitutional Vitals: Temp Pulse Resp BP Pulse Ox 98.8 F 75 18 128/68 99 08/13/16 13:07 08/13/16 13:07 08/13/16 13:07 08/13/16 13:07 08/13/16 13:07 Plan Additional Instructions: *INR Checks have been set up with Home health Services Follow up with: PRIMARY CARE, [Primary Care Provider] - 3-5 Days Forms: Warfarin Discharge Instruction Prescriptions: Digoxin [Lanoxin] 0.125 mg PO DAILY #30 tablet Lisinopril [Zestril TAB] 20 mg PO QDAY #30 tablet Metoprolol [Lopressor TAB] 25 mg PO BID #60 tablet
[2016-08-13] MEDS ORDERED: COUMADIN PO SCH (17:00)
== END 2016-08-13 17:16 | disposition home health service (06) | DRG 309 ==
LOC: ED 15:21 → 4A 19:33
PROVIDERS: ADMIT Internal Medicine; ATTEND Internal Medicine
DX: I48.91 Unspecified atrial fibrillation (principal); I50.22 Chronic systolic (congestive) heart failure; D64.9 Anemia, unspecified; I11.0 Hypertensive heart disease with heart failure; K21.9 Gastro-esophageal reflux disease without esophagitis; M19.90 Unspecified osteoarthritis, unspecified site; F03.90 Unspecified dementia, unspecified severity, without behavioral disturbance, psychotic disturbance, mood disturbance, and anxiety; Z96.641 Presence of right artificial hip joint; I69.322 Dysarthria following cerebral infarction; Z79.899 Other long term (current) drug therapy; Z82.49 Family history of ischemic heart disease and other diseases of the circulatory system
CPT/HCPCS: 36415; 71010; 80048; 80162; 82550; 82553; 83880; 84484; 85025; 85610; 85730; 93005; 93010; 93306; 96374; G8978-GP; G8979-GP; G8980-GP; J1940

== ENCOUNTER 2017-04-03 16:39 | Emergency (ER) | payer MEDICARE ==
[2017-04-03 18:10] VITALS: BP 127/72
[2017-04-03 18:24] LABS: Basophils % (Auto) 0.6 % (0.0-1.8); Eosinophils % (Auto) 0.7 % (0.0-4.3); Hemoglobin 11.6 gm/dl (10.1-14.3); Mean Corpuscular HGB Conc 32 % (30-34); Mean Corpuscular Hemoglobin 31 pg (28-32); Mean Corpuscular Volume 95 fl (79-97); Platelet Count 218 K/mm3 (140-440); Red Blood Count 3.79 M/mm3 (3.65-5.03); Red Cell Distribution Width 16.6 % (13.2-15.2); White Blood Count 8.4 K/mm3 (4.5-11.0)
--- NOTE | 2017-04-03 18:33 | Emergency Department Report ---
ED Altered Mental Status HPI - General Chief Complaint: Altered Mental Status Stated Complaint: HYPGLYCEMIA Time Seen by Provider: 04/03/17 18:17 Source: EMS Mode of arrival: Ambulatory Limitations: Physical Limitation - History of Present Illness Initial Comments: Patient is 86 years old female history of dementia, CHF, CVA and arthritis, followed by family for evaluation of altered mental status for 2 days. Family stated that she is more confused, she doesn't know where she is in her family is , she is talking to herself a lot and she is seeing things that are not there. Family also reported that she fell 2 weeks ago and she did not have a medical evaluation. Patient denied any headache. No weakness or numbness or tingling sensation. MD Complaint: altered mental status, confusion -: days(s) Severity: moderate - Related Data Home Medications Medication Instructions Recorded Confirmed Last Taken Warfarin Sodium [Coumadin] 3 mg PO QDAY 04/11/16 08/10/16 Unknown Previous Rx's Medication Instructions Recorded Last Taken Type Digoxin [Lanoxin] 0.125 mg PO DAILY #30 tablet 08/13/16 Unknown Rx Lisinopril [Zestril TAB] 20 mg PO QDAY #30 tablet 08/13/16 Unknown Rx Metoprolol [Lopressor TAB] 25 mg PO BID #60 tablet 08/13/16 Unknown Rx Allergies Allergy/AdvReac Type Severity Reaction Status Date / Time No Known Allergies Allergy Verified 08/10/16 16:04 ED Review of Systems ROS: Stated complaint: HYPGLYCEMIA Other details as noted in HPI Comment: All other systems reviewed and negative Eyes: denies: vision change ENT: denies: throat pain Respiratory: denies: cough, orthopnea, shortness of breath, SOB with exertion, SOB at rest Cardiovascular: denies: chest pain, palpitations Gastrointestinal: denies: abdominal pain, nausea, vomiting, diarrhea Genitourinary: urgency, dysuria, frequency Musculoskeletal: denies: back pain Neurological: confusion. denies: headache, weakness, numbness, paresthesias, abnormal gait ED Past Medical Hx - Past Medical History Previous Medical History?: Yes Hx Hypertension: Yes Hx CVA: Yes Hx Heart Attack/AMI: No Hx Congestive Heart Failure: Yes Hx Diabetes: No Hx Deep Vein Thrombosis: No Hx Pulmonary Embolism: No Hx GERD: Yes Hx Liver Disease: No Hx Renal Disease: No Hx of Cancer: No Hx Sickle Cell Disease: No Hx Arthritis: Yes Hx Headaches / Migraines: No Hx Seizures: No Hx Kidney Stones: No Hx Psychiatric Treatment: No Hx Asthma: No Hx COPD: No Hx Tuberculosis: No Hx Dementia: No Hx HIV: No Additional medical history: Atrial fibrillation. States previous rotator cuff injury with left arm weakness. 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 - Surgical History Past Surgical History?: Yes Hx Coronary Stent: No Hx Open Heart Surgery: No Hx Pacemaker: No Hx Internal Defibrillator: No Hx Cholecystectomy: No Hx Appendectomy: No Hx Breast Surgery: No Additional Surgical History: left hip surgery - Social History Smoking Status: Never Smoker Substance Use Type: None - Medications Home Medications: Home Medications Medication Instructions Recorded Confirmed Last Taken Type Warfarin Sodium [Coumadin] 3 mg PO QDAY 04/11/16 08/10/16 Unknown History Digoxin [Lanoxin] 0.125 mg PO DAILY #30 tablet 08/13/16 Unknown Rx Lisinopril [Zestril TAB] 20 mg PO QDAY #30 tablet 08/13/16 Unknown Rx Metoprolol [Lopressor TAB] 25 mg PO BID #60 tablet 08/13/16 Unknown Rx ED Physical Exam - General Limitations: Physical Limitation General appearance: alert, in no apparent distress - Head Head exam: Present: atraumatic, normocephalic, normal inspection - Eye Eye exam: Present: normal appearance, PERRL, EOMI Pupils: Present: normal accommodation - ENT ENT exam: Present: normal exam, mucous membranes moist, normal external ear exam - Neck Neck exam: Present: normal inspection, full ROM. Absent: tenderness, meningismus, lymphadenopathy, thyromegaly - Respiratory Respiratory exam: Present: normal lung sounds bilaterally. Absent: respiratory distress, wheezes, rales, rhonchi, stridor, chest wall tenderness, accessory muscle use, decreased breath sounds, prolonged expiratory - Cardiovascular Cardiovascular Exam: Present: regular rate, normal rhythm, normal heart sounds - GI/Abdominal GI/Abdominal exam: Present: soft, normal bowel sounds. Absent: distended, tenderness, guarding, rebound, rigid, organomegaly, mass, bruit, pulsatile mass , hernia - Extremities Exam Extremities exam: Present: normal inspection, normal capillary refill. Absent: tenderness - Back Exam Back exam: Present: normal inspection. Absent: CVA tenderness (R), CVA tenderness (L) - Neurological Exam Neurological exam: Present: alert, altered, CN II-XII intact - Skin Skin exam: Present: warm, intact, normal color ED Course Vital Signs 04/03/17 04/03/17 12 17:12 17:15 17:19 Temperature 98.1 F Pulse Rate 89 101 H 101 H Respiratory 11 L 19 18 Rate Blood Pressure 127/72 127/72 Blood Pressure 127/72 [Right] O2 Sat by Pulse 97 100 Oximetry - Reevaluation(s) Reevaluation #1: 04/03/17 21:27 Patient improved significantly after fluids. She is talking to her family. Family stated that she looks much better. - Lab Data Result diagrams: 04/03/17 17:56 04/03/17 17:56 Lab Results 04/03/17 04/03/17 04/03/17 Range/Units 17:56 17:56 17:56 WBC 8.4 (4.5-11.0) K/mm3 RBC 3.79 (3.65-5.03) M/mm3 Hgb 11.6 (10.1-14.3) gm/dl Hct 36.0 (30.3-42.9) % MCV 95 (79-97) fl MCH 31 (28-32) pg MCHC 32 (30-34) % RDW 16.6 H (13.2-15.2) % Plt Count 218 (140-440) K/mm3 Lymph % (Auto) 9.3 L (13.4-35.0) % Fisher % (Auto) 8.9 H (0.0-7.3) % Eos % (Auto) 0.7 (0.0-4.3) % Baso % (Auto) 0.6 (0.0-1.8) % Lymph # 0.8 L (1.2-5.4) K/mm3 Fisher # 0.8 (0.0-0.8) K/mm3 Eos # 0.1 (0.0-0.4) K/mm3 Baso # 0.0 (0.0-0.1) K/mm3 Seg Neutrophils % 80.5 H (40.0-70.0) % Seg Neutrophils # 6.8 (1.8-7.7) K/mm3 Sodium 141 (137-145) mmol/L Potassium 4.6 (3.6-5.0) mmol/L Chloride 105.5 (98-107) mmol/L Carbon Dioxide 19 L (22-30) mmol/L Anion Gap 21 mmol/L BUN 22 H (7-17) mg/dL Creatinine 0.7 (0.7-1.2) mg/dL Estimated GFR > 60 ml/min BUN/Creatinine Ratio 31 % Glucose 102 H (65-100) mg/dL Lactic Acid 1.40 (0.7-2.0) mmol/L Calcium 8.0 L (8.4-10.2) mg/dL Magnesium 2.20 (1.7-2.3) mg/dL Total Bilirubin 0.60 (0.1-1.2) mg/dL AST 17 (5-40) units/L ALT 13 (7-56) units/L Alkaline Phosphatase 142 H (35-129) units/L Total Protein 6.8 (6.3-8.2) g/dL Albumin 3.2 L (3.9-5) g/dL Albumin/Globulin Ratio 0.9 % TSH (0.270-4.200) mlU/mL Urine Color (Yellow) Urine Turbidity (Clear) Urine pH (5.0-7.0) Ur Specific [place] (1.003-1.030) Urine Protein (Negative) mg/dL Urine Glucose (UA) (Negative) mg/dL Urine Ketones (Negative) mg/dL Urine Blood (Negative) Urine Nitrite (Negative) Urine Bilirubin (Negative) Urine Urobilinogen (<2.0) mg/dL Ur Leukocyte Esterase (Negative) Urine WBC (Auto) (0.0-6.0) /HPF Urine RBC (Auto) (0.0-6.0) /HPF U Epithel Cells (Auto) (0-13.0) /HPF Urine Mucus /HPF Urine Yeast (Budding) /HPF Salicylates (2.8-20.0) mg/dL Urine Opiates Screen Urine Methadone Screen Acetaminophen (10.0-30.0) ug/mL Ur Barbiturates Screen Ur Phencyclidine Scrn Ur Amphetamines Screen U Benzodiazepines Scrn Urine Cocaine Screen U Marijuana (THC) Screen Drugs of Abuse Note Plasma/Serum Alcohol (0-0.07) gm% 12/06/17 12/06/17 12/06/17 Range/Units 17:56 17:56 17:56 WBC (4.5-11.0) K/mm3 RBC (3.65-5.03) M/mm3 Hgb (10.1-14.3) gm/dl Hct (30.3-42.9) % MCV (79-97) fl MCH (28-32) pg MCHC (30-34) % RDW (13.2-15.2) % Plt Count (140-440) K/mm3 Lymph % (Auto) (13.4-35.0) % Fisher % (Auto) (0.0-7.3) % Eos % (Auto) (0.0-4.3) % Baso % (Auto) (0.0-1.8) % Lymph # (1.2-5.4) K/mm3 Fisher # (0.0-0.8) K/mm3 Eos # (0.0-0.4) K/mm3 Baso # (0.0-0.1) K/mm3 Seg Neutrophils % (40.0-70.0) % Seg Neutrophils # (1.8-7.7) K/mm3 Sodium (137-145) mmol/L Potassium (3.6-5.0) mmol/L Chloride (98-107) mmol/L Carbon Dioxide (22-30) mmol/L Anion Gap mmol/L BUN (7-17) mg/dL Creatinine (0.7-1.2) mg/dL Estimated GFR ml/min BUN/Creatinine Ratio % Glucose (65-100) mg/dL Lactic Acid (0.7-2.0) mmol/L Calcium (8.4-10.2) mg/dL Magnesium (1.7-2.3) mg/dL Total Bilirubin (0.1-1.2) mg/dL AST (5-40) units/L ALT (7-56) units/L Alkaline Phosphatase (35-129) units/L Total Protein (6.3-8.2) g/dL Albumin (3.9-5) g/dL Albumin/Globulin Ratio % TSH 1.780 (0.270-4.200) mlU/mL Urine Color (Yellow) Urine Turbidity (Clear) Urine pH (5.0-7.0) Ur Specific [place] (1.003-1.030) Urine Protein (Negative) mg/dL Urine Glucose (UA) (Negative) mg/dL Urine Ketones (Negative) mg/dL Urine Blood (Negative) Urine Nitrite (Negative) Urine Bilirubin (Negative) Urine Urobilinogen (<2.0) mg/dL Ur Leukocyte Esterase (Negative) Urine WBC (Auto) (0.0-6.0) /HPF Urine RBC (Auto) (0.0-6.0) /HPF U Epithel Cells (Auto) (0-13.0) /HPF Urine Mucus /HPF Urine Yeast (Budding) /HPF Salicylates < 0.3 L (2.8-20.0) mg/dL Urine Opiates Screen Urine Methadone Screen Acetaminophen < 15.0 (10.0-30.0) ug/mL Ur Barbiturates Screen Ur Phencyclidine Scrn Ur Amphetamines Screen U Benzodiazepines Scrn Urine Cocaine Screen U Marijuana (THC) Screen Drugs of Abuse Note Plasma/Serum Alcohol (0-0.07) gm% 04/03/17 04/03/17 04/03/17 Range/Units 17:56 20:27 20:27 WBC (4.5-11.0) K/mm3 RBC (3.65-5.03) M/mm3 Hgb (10.1-14.3) gm/dl Hct (30.3-42.9) % MCV (79-97) fl MCH (28-32) pg MCHC (30-34) % RDW (13.2-15.2) % Plt Count (140-440) K/mm3 Lymph % (Auto) (13.4-35.0) % Fisher % (Auto) (0.0-7.3) % Eos % (Auto) (0.0-4.3) % Baso % (Auto) (0.0-1.8) % Lymph # (1.2-5.4) K/mm3 Fisher # (0.0-0.8) K/mm3 Eos # (0.0-0.4) K/mm3 Baso # (0.0-0.1) K/mm3 Seg Neutrophils % (40.0-70.0) % Seg Neutrophils # (1.8-7.7) K/mm3 Sodium (137-145) mmol/L Potassium (3.6-5.0) mmol/L Chloride (98-107) mmol/L Carbon Dioxide (22-30) mmol/L Anion Gap mmol/L BUN (7-17) mg/dL Creatinine (0.7-1.2) mg/dL Estimated GFR ml/min BUN/Creatinine Ratio % Glucose (65-100) mg/dL Lactic Acid (0.7-2.0) mmol/L Calcium (8.4-10.2) mg/dL Magnesium (1.7-2.3) mg/dL Total Bilirubin (0.1-1.2) mg/dL AST (5-40) units/L ALT (7-56) units/L Alkaline Phosphatase (35-129) units/L Total Protein (6.3-8.2) g/dL Albumin (3.9-5) g/dL Albumin/Globulin Ratio % TSH (0.270-4.200) mlU/mL Urine Color [place] (Yellow) Urine Turbidity Clear (Clear) Urine pH 5.0 (5.0-7.0) Ur Specific [place] 1.021 (1.003-1.030) Urine Protein 100 mg/dl (Negative) mg/dL Urine Glucose (UA) Neg (Negative) mg/dL Urine Ketones Tr (Negative) mg/dL Urine Blood Sm (Negative) Urine Nitrite Neg (Negative) Urine Bilirubin Neg (Negative) Urine Urobilinogen 2.0 (<2.0) mg/dL Ur Leukocyte Esterase Lg (Negative) Urine WBC (Auto) > 182.0 H (0.0-6.0) /HPF Urine RBC (Auto) 161.0 (0.0-6.0) /HPF U Epithel Cells (Auto) 3.0 (0-13.0) /HPF Urine Mucus 3+ /HPF Urine Yeast (Budding) 3+ /HPF Salicylates (2.8-20.0) mg/dL Urine Opiates Screen Presumptive negative Urine Methadone Screen Presumptive negative Acetaminophen (10.0-30.0) ug/mL Ur Barbiturates Screen Presumptive negative Ur Phencyclidine Scrn Presumptive negative Ur Amphetamines Screen Presumptive negative U Benzodiazepines Scrn Presumptive negative Urine Cocaine Screen Presumptive negative U Marijuana (THC) Screen Presumptive negative Drugs of Abuse Note Disclamer Plasma/Serum Alcohol < 0.01 (0-0.07) gm% - EKG Data -: EKG Interpreted by Me Rate: normal Interpretation: other (atrial fibrillation) - Radiology Data Radiology results: report reviewed CT brain no acute finding, left hip x-ray no acute finding. Critical care attestation.: If time is entered above; I have spent that time in minutes in the direct care of this critically ill patient, excluding procedure time. ED Disposition Clinical Impression: Altered mental status, UTI (urinary tract infection) Disposition: DC- TO HOME OR SELFCARE Is pt being admited?: No Condition: Stable Instructions: Altered Mental Status (ED), Urinary Tract Infection in Women (ED) Referrals: PRIMARY CARE, [Primary Care Provider] - 3-5 Days
[2017-04-03] MEDS ORDERED: NACL 0.9% 500 ML 500 ML IV ONE (18:35)
[2017-04-03 18:48] LABS: Alanine Aminotransferase 13 units/L (7-56); Albumin 3.2 g/dL (3.9-5); Albumin/Globulin Ratio 0.9 %; Alkaline Phosphatase 142 units/L (35-129); Anion Gap 21 mmol/L; BUN/Creatinine Ratio 31; Blood Urea Nitrogen 22 mg/dL (7-17); Carbon Dioxide 19 mmol/L (22-30); Chloride 105.5 mmol/L (98-107); Glucose 102 mg/dL (65-100); Potassium 4.6 mmol/L (3.6-5.0); Sodium 141 mmol/L (137-145); Total Protein 6.8 g/dL (6.3-8.2)
--- NOTE | 2017-04-03 19:50 | Cat Scan Report ---
FINAL REPORT PROCEDURE: CT HEAD/BRAIN WO CON TECHNIQUE: Computerized tomography of the head was performed without contrast material. HISTORY: AMS, Head Injury COMPARISON: No prior studies are available for comparison. FINDINGS: Visualized portions of the paranasal sinuses and mastoid air cells are clear. No calvarial fracture is seen. Calcifications are seen in the distal ICAs. Cerebral ventricles are normal in size. Old right frontal lobe CVA is seen with encephalomalacia. Prominent chronic small vessel ischemic changes are suspect in the periventricular white matter and basal ganglia. Subacute to chronic right thalamic lacunar infarct is suspected. No acute intracranial hemorrhage or mass effect is seen. IMPRESSION: Likely old ischemic changes are seen the brain without evidence of acute abnormality.
[2017-04-03 20:46] LABS: Urine Drugs of Abuse Note Disclamer
--- NOTE | 2017-04-03 20:58 | XRay Report ---
FINAL REPORT PROCEDURE: XR HIP 2-3V LT TECHNIQUE: AP view of the pelvis and lateral view of the left hip are obtained HISTORY: fall hip pain COMPARISON: No prior studies are available for comparison. FINDINGS: Left hip prosthesis appears normally positioned without loosening or dislocation. Bones appear osteopenic. No fracture is seen. IMPRESSION: No acute abnormality is seen.
[2017-04-03 21:00] LABS: Bilirubin,Urine NEG (Negative); Blood,Urine SM (Negative); Ketones,Urine TR mg/dL (Negative); Leukocyte Esterase,Urine LG (Negative); Mucus,Urine 3+ /HPF; Nitrite,Urine NEG (Negative)
[2017-04-03 21:01] LABS: WBC,Urine > 182.0 /HPF (0.0-6.0)
[2017-04-03] MEDS ORDERED: ROCEPHIN/NS 1 GM/50 ML 1 GM/50 ML BAG IV ONE (21:13)
[2017-04-03] MEDS ORDERED: cefTRIAXone 1 GM in NACL 0.9% 20 ML IV ONE (21:30)
== END 2017-04-03 22:42 | disposition home or self-care (01) ==
LOC: ED 16:39
DX: R41.82 Altered mental status, unspecified (principal); N39.0 Urinary tract infection, site not specified; I11.0 Hypertensive heart disease with heart failure; I50.9 Heart failure, unspecified; K21.9 Gastro-esophageal reflux disease without esophagitis; M19.90 Unspecified osteoarthritis, unspecified site; Z86.73 Personal history of transient ischemic attack (TIA), and cerebral infarction without residual deficits; Z79.01 Long term (current) use of anticoagulants
CPT/HCPCS: 36415; 70450; 73502; 80053; 80307; 81001; 82140; 83735; 84443; 85025; 93005; 93010; 96374; 99285; G0480; J0696; J7040; 80320